=== PATIENT | female | born 1965 | race Caucasian/White ===

== ENCOUNTER 2016-08-29 12:13 | Inpatient (IN) | payer OTHER ==
--- NOTE | 2016-08-29 12:27 | PDOC ---
History of Present Illness - General Chief Complaint: Jaundice Stated Complaint: JAUNDICE Time Seen by Provider: 08/29/16 12:24 History Source: Patient Exam Limitations: No Limitations - History of Present Illness Initial Comments: 08/29/16 12:47 This patient is a 51-year-old female with a prior history of sinusitis, prior history of gallstones diagnosed in 2005 who presents from her primary care physician's office due to jaundice. Patient states she was noticed by her son yesterday to be jaundiced. She currently denies abdominal pain but states that on August 19 she had an episode of nausea, vomiting, diaphoresis after having ice coffee. She has a history of chronic reflux, which has not changed. She has had no fevers, no chills. She's had no recent history of colds or flus. In fact patient states she is usually so healthy that she was ill was in 1995. 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 PSH: Splenectomy Medications: denies ALL: NKDA Social: (+) Tobacco use (10 cig/day) GENERAL/CONSTITUTIONAL: No: fever, chills, weakness, loss of appetite. HEAD, EYES, EARS, NOSE AND THROAT: No: change in vision, ear pain, discharge, sore throat, throat swelling. CARDIOVASCULAR: No: chest pain, lightheadedness, palpitations, syncope RESPIRATORY: No: cough, shortness of breath, wheezing, hemoptysis, stridor. GASTROINTESTINAL: No: nausea, vomiting, diarrhea, abdominal cramping, rectal bleeding, constipation. GENITOURINARY: No: dysuria, hematuria, frequency, urgency, flank pain. MUSCULOSKELETAL: No: back pain, neck pain, joint pain, muscle swelling or pain SKIN: Yes: Jaundiced No: lesions, pallor, rash or easy bruising. NEUROLOGIC: No: headache, vertigo, paresthesias, weakness ENDOCRINE: No: unexplained weight gain or loss HEMATOLOGIC/LYMPHATIC: No: anemia, easy bleeding, swelling nodes. GENERAL: The patient is in no acute distress. HEAD: Normal with no signs of trauma. EYES: PERRLA, EOMI, sclera icteric, conjunctiva clear. ENT: Ears normal, nares patent, oropharynx clear without exudates. Moist mucous membranes. NECK: Normal range of motion, supple without lymphadenopathy, JVD, or masses. LUNGS: Breath sounds equal, clear to auscultation bilaterally. No wheezes, and no crackles. HEART:Regular rate and rhythm, normal S1 and S2 without murmur, rub or gallop. ABDOMEN: Mild RUQ tenderness to deep palpation, otherwise abd Soft, nontender, normoactive bowel sounds. No guarding, no rebound. EXTREMITIES: Normal range of motion, no edema. No clubbing or cyanosis. No erythema, or tenderness. NEUROLOGICAL: Cranial nerves II through XII grossly intact. Normal speech. No focal neurological deficits. MUSCULOSKELETAL: Back non-tender to palpation, no CVA tenderness SKIN: Well healed midline abdominal surgical scar, (+) jaundice Past History - Past Medical History Allergies/Adverse Reactions: Allergies Allergy/AdvReac Type Severity Reaction Status Date / Time No Known Allergies Allergy Verified 08/29/16 12:15 Home Medications: Ambulatory Orders NK [No Known Home Medication] 08/29/16 ED Treatment Course - LABORATORY CBC & Chemistry Diagram: 08/29/16 13:00 08/29/16 13:00 Medical Decision Making - Medical Decision Making 08/29/16 12:24 Received call from pt PMD History of gallstones diagnosed in 2005 1 month ago, got nauseous no pain Yesterday she was noted by the family to be jaundiced She had had diarrhea that is yellow 08/29/16 12:51 DD: Biliary pathology, pancreatic mass/pathology, hemolysis, Will do labs Will do [facility] US 08/29/16 14:25 Laboratory Tests 08/29/16 08/29/16 13:00 13:00 WBC 6.4 Hgb 14.0 Hct 40.0 Plt Count 346 BUN 11 Creatinine 0.5 L Random Glucose 114 H Total Bilirubin 13.4 H AST 392 H ALT 714 H Alkaline Phosphatase 547 H U/S: thick walled gallbladder and multiple calculi Marked dilation of the intra and extrehepatic biliary tree CT recommended Case reviewed with Dr Ruiz Mason 08/29/16 15:[address] Luu Pending CT *DC/Admit/Observation/Transfer Diagnosis at time of Disposition: Jaundice - Discharge Dispostion Condition at time of disposition: Stable Admit: Yes
[2016-08-29 13:25] LABS: MCH 32.2 pg (25.7-33.7); MEAN PLT VOLUME 10.3 fl (7.5-11.1); PLATELET COUNT 346 K/MM3 (134-434); RDW 14.1 % (11.6-15.6); WHITE BLOOD COUNT 6.4 K/mm3 (4.0-10.8)
[2016-08-29 13:42] LABS: ALBUMIN 3.7 g/dl (3.5-5.0); ALK PHOS 547 U/L (32-92); AMYLASE 60 U/L (25-125); ANION GAP 9 (8-16); BILIRUBIN,TOTAL 13.4 mg/dl (0.2-1.0); CALCIUM 9.6 mg/dl (8.4-10.2); CO2 23 mmol/L (22-28); COCKROFT - GAULT 179.3245; CREATININE 0.5 mg/dl (0.6-1.3); GLUCOSE,RANDOM 114 mg/dl (74-106); TOT PROT 7.2 g/dl (6.4-8.3)
[2016-08-29 13:58] LABS: SGOT/AST 392 U/L (10-42)
[2016-08-29 14:07] LABS: SGPT/ALT 714 U/L (10-40)
[2016-08-29] MEDS ORDERED: SODIUM CHLORIDE 1,000 ML IV STA (14:52)
[2016-08-29 15:06] LABS: METAMYELOCYTE 3 % (0-2); PLATELET ESTIMATE ADEQUATE (NORMAL)
[2016-08-29 15:07] LABS: TOXIC GRANULATION OCC
[2016-08-29 18:42] VITALS: BMI 32.5
--- NOTE | 2016-08-29 21:01 | HP ---
CHIEF COMPLAINT: jaundice PCP: Ruiz Mason HISTORY OF PRESENT ILLNESS: This is a 51 year old female with a past medical history of gallstones, last attack in 2005, and thrombocytopenia s/p splenectomy who presented to her PCP for jaundice who then sent her to the ED for evaluation. She denies abdominal pain, nausea, vomiting, diarrhea. She denies recent illness. ER course was notable for: (1) Bilirubin 13.4, AST 329, ALT 714, Alk Phos 547 (2) Thick walled GB with multiple calculi. 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 sinusitis gallstones PAST SURGICAL HISTORY: splenectomy Social History: [place]/day Alcohol: holidays Drugs: pt denies Family History: mother age 76, brain tumor father age 83, infection with pus around lung 2 brothers healthy Allergies No Known Allergies Allergy (Verified 08/29/16 12:15) HOME MEDICATIONS: 3 Medication Instructions Recorded NK [No Known Home Medication] 08/29/16 REVIEW OF SYSTEMS CONSTITUTIONAL: Absent: fever, chills, diaphoresis, generalized weakness, malaise, loss of appetite, weight change HEENT: Absent: rhinorrhea, nasal congestion, throat pain, throat swelling, difficulty swallowing, mouth swelling, ear pain, eye pain, visual changes CARDIOVASCULAR: Absent: chest pain, syncope, palpitations, irregular heart rate, lightheadedness , peripheral edema RESPIRATORY: Absent: cough, shortness of breath, dyspnea with exertion, orthopnea, wheezing, stridor, hemoptysis GASTROINTESTINAL: Absent: abdominal pain, abdominal distension, nausea, vomiting, diarrhea, constipation, melena, hematochezia GENITOURINARY: Absent: dysuria, frequency, urgency, hesitancy, hematuria, flank pain, genital pain MUSCULOSKELETAL: Absent: myalgia, arthralgia, joint swelling, back pain, neck pain SKIN: Present: Jaundice Absent: rash, itching, pallor HEMATOLOGIC/IMMUNOLOGIC: Absent: easy bleeding, easy bruising, lymphadenopathy, frequent infections ENDOCRINE: Absent: unexplained weight gain, unexplained weight loss, heat intolerance, cold intolerance NEUROLOGIC: Absent: headache, focal weakness or paresthesias, dizziness, unsteady gait, seizure, mental status changes, bladder or bowel incontinence PSYCHIATRIC: Absent: anxiety, depression, suicidal or homicidal ideation, hallucinations. PHYSICAL EXAMINATION Vital Signs - 24 hr 3 08/29/16 08/29/16 08/29/16 12:14 18:35 20:22 Temperature 98.7 F 98.6 F Pulse Rate 120 H 85 Respiratory 16 18 18 Rate Blood Pressure 143/95 137/73 O2 Sat by Pulse 100 100 100 Oximetry (%) GENERAL: Awake, alert, and fully oriented, in no acute distress. HEAD: Normal with no signs of trauma. EYES: Pupils equal, round and reactive to light, extraocular movements intact, sclera icteric, conjunctiva clear. No lid lag. EARS, NOSE, THROAT: Ears normal, nares patent, oropharynx clear without exudates. Moist mucous membranes. NECK: Normal range of motion, supple without lymphadenopathy, JVD, or masses. LUNGS: Breath sounds equal, clear to auscultation bilaterally. No wheezes, and no crackles. No accessory muscle use. HEART: Regular rate and rhythm, normal S1 and S2 without murmur, rub or gallop. ABDOMEN: Soft, nontender, not distended, normoactive bowel sounds, no guarding, no rebound, no masses. No hepatomegaly or splenomegaly. MUSCULOSKELETAL: Normal range of motion at all joints. No bony deformities or tenderness. No CVA tenderness. UPPER EXTREMITIES: 2+ pulses, warm, well-perfused. No cyanosis. No clubbing. No peripheral edema. LOWER EXTREMITIES: 2+ pulses, warm, well-perfused. No calf tenderness. No peripheral edema. NEUROLOGICAL: Cranial nerves II-XII intact. Normal speech. Normal gait. PSYCHIATRIC: Cooperative. Good eye contact. Appropriate mood and affect. SKIN: Warm, dry, normal turgor, no rashes or lesions noted, normal capillary refill. + jaundice Laboratory Results - last 24 hr 3 08/29/16 08/29/16 08/29/16 13:00 13:00 16:04 WBC 6.4 RBC 4.35 Hgb 14.0 Hct 40.0 MCV 92.0 MCHC 35.0 RDW 14.1 Plt Count 346 MPV 10.3 Neutrophils % 62.0 Lymphocytes % 17.0 Monocytes % 10.0 Eosinophils % 4.0 Basophils % 1.0 Band Neutrophils 3.0 Metamyelocytes 3 H Toxic Granulation Occ Platelet Estimate Adequate Platelet Comment Mod large plts Sodium 136 Potassium 3.6 Chloride 104 Carbon Dioxide 23 Anion Gap 9 BUN 11 Creatinine 0.5 L Creat Clearance w eGFR > 60 Random Glucose 114 H Calcium 9.6 Total Bilirubin 13.4 H AST 392 H ALT 714 H Alkaline Phosphatase 547 H Total Protein 7.2 Albumin 3.7 Total Amylase 60 Lipase 24 Serum , Qual Negative Portable chest x ray A frontal view of the chest was obtained. No prior is available for comparison. The cardiac silhouette is within normal limits in size. The lung is clear. Mediastinum and visualized osseous structures appear intact . An abdominal shield is present. Impression: Unremarkable examination without evidence of acute lung disease US/ABDOMEN US -LIMITED HISTORY PROVIDED: Jaundice. Real time examination of the abdomen demonstrates the following: The gallbladder is thick-walled and does contain multiple calculi. There is no marked dilatation of both the intra or extrahepatic biliary tree with the common bile duct measuring approximately 1.8 cm. The etiology of this dilatation is uncertain and may be related to choledocholithiasis. The possibility of a mass in the head of the pancreas cannot excluded. A follow-up contrast-enhanced CT scan, utilizing pancreatic protocol, is recommended. An MRCP examination may also be helpful. The liver is normal in size and texture with no intrahepatic masses seen. The pancreas is not well visualized due to overlying bowel gas. There is no evidence of hydronephrosis or acute abnormalities of the right kidney. There is no evidence of AAA. The IVC is patent. IMPRESSION: 1. Thick-walled gallbladder with multiple calculi. 2. Marked dilatation of the intra and extrahepatic biliary tree. Diagnostic possibilities would include choledocholithiasis or pancreatic head mass. A follow-up CT scan and/or MRCP examination now recommended. Please see above discussion. CT scan of the abdomen and pelvis following oral and intravenous contrast. Post intravenous contrast CT scan of the abdomen pelvis was obtained in portal venous and venous phase. Coronal and sagittal reformatted images were obtained 100 cc of Omnipaque 350 was intravenously injected Comparison: Prior upper abdomen ultrasound dated 08/29/2016 Visualized lung base appears unremarkable and the heart is within normal limits in size. The gallbladder is adequately distended with multiple intraluminal stones and thickening of its wall. No gross pericholecystic free fluid is identified. There is moderate to marked dilatation of the central intrahepatic bile ducts. Significant dilatation of the common hepatic duct measuring 1.8 cm. Intrapancreatic portion of the common bile duct measures 9.7 mm in dimension. No gross intraluminal stone is identified on this exam. The pancreatic head appears to be a prominent however, no discrete mass or surrounding stranding/edema is identified. Both adrenal glands and both kidneys appear unremarkable. There is no evidence of small bowel obstruction. No gross enlarged lymph nodes are identified. Normal stool burden in the colon without wall thickening. Normal-appearing terminal ileum and appendix. Adequately distended urinary bladder without wall thickening. Normal size uterus. Both ovaries are within normal limits in size with a cyst/ follicle in the right ovary measuring 1.5 cm. Visualized osseous structures appear intact Impression: Multiple gallstones with thickening of the gallbladder wall without gross evidence of pericholecystic free fluid. There is moderate to marked dilatation of the intrahepatic bile ducts as well as dilatation of the common hepatic and common bile duct without gross evidence of an intraluminal filling defect or stone. Prominent pancreatic head without gross dated herniation of a discrete mass lesion or surrounding infiltration. Correlation with contrast- enhanced MRI of the pancreas and MRCP is strongly recommended for further evaluation. ECG: sinus rhythm, rate 71, QTC 404. T wave inversions lead 3, aVF, flattening lead 2. ASSESSMENT/PLAN: 51yF with PMH gallstones, thrombocytopenia, sinusitis presented to the ED with jaundice. She has been admitted for further evaluation. Jaundice, elevated LFTs, hyperbilirubinemia - r/o choledocholithiasis vs pancreatic mass, obtain MRI/MRCP - repeat labs in am. - consider GI consult DVT PPX - lovenox FEN - pt tolerating po fluids - repeat labs in am - regular diet as tolerated Dispo: Pt currently requires inpatient management of her emergent condition. Visit type - Emergency Visit Emergency Visit: Yes ED Registration Date: 08/29/16 Care time: The patient presented to the Emergency Department on the above date and was hospitalized for further evaluation of their emergent condition. - New Patient This patient is new to me today: Yes Date on this admission: 08/29/16 - Critical Care Critical Care patient: No
--- NOTE | 2016-08-30 07:19 | PN ---
Physical Exam: SUBJECTIVE: Patient seen and examined, denies any abdominal pain, nausea or vomiting, reports patient appears less jaundice OBJECTIVE: patient is a 51 year old female with a past medical history of cholelithasis, and thrombocytopenia s/p splenectomy. patient was admitted from the emergency department for emergent condition. Vital Signs Period Temp Pulse Resp BP Sys/Wilson Pulse Ox Last 24 Hr 98.0 F-98.6 F 70-85 18-18 113-137/67-73 99-100 GENERAL: The patient is awake, alert, and fully oriented, in no acute distress. HEAD: Normal with no signs of trauma. EYES: PERRL, extraocular movements intact, sclera icteric, conjunctiva clear. No ptosis. ENT: Ears normal, nares patent, oropharynx clear without exudates, moist mucous membranes. NECK: Trachea midline, full range of motion, supple. LUNGS: Breath sounds equal, clear to auscultation bilaterally, no wheezes, no crackles, no accessory muscle use. HEART: Regular rate and rhythm, S1, S2 without murmur, rub or gallop. ABDOMEN: Soft, nontender, nondistended, normoactive bowel sounds, no guarding, no rebound, no hepatosplenomegaly, no masses. EXTREMITIES: 2+ pulses, warm, well-perfused, no edema. NEUROLOGICAL: Cranial nerves II through XII grossly intact. Normal speech, gait not observed. PSYCH: Normal mood, normal affect. SKIN: Warm, jaundice, normal turgor, no rashes or lesions noted Active Medications Generic Name Dose Route Start Last Admin Trade Name Freq PRN Reason Stop Dose Admin Enoxaparin Sodium 40 mg 08/30/16 10:00 08/30/16 09:22 Lovenox - SQ 40 mg DAILY LILLY Administration Dextrose/Sodium Chloride 1,000 mls @ 75 mls/hr 08/30/16 13:15 D5-Ns - IV ASDIR LILLY CBC WBC 6.4 K/mm3 (4.0-10.8) 08/29/16 13:00 RBC 4.35 M/mm3 (3.60-5.2) 08/29/16 13:00 Hgb 14.0 GM/dl (10.7-15.3) 08/29/16 13:00 Hct 40.0 % (32.4-45.2) 08/29/16 13:00 MCV 92.0 fl (80-96) 08/29/16 13:00 MCHC 35.0 g/dl (32.0-36.0) 08/29/16 13:00 RDW 14.1 % (11.6-15.6) 08/29/16 13:00 Plt Count 346 K/MM3 (134-434) 08/29/16 13:00 MPV 10.3 fl (7.5-11.1) 08/29/16 13:00 Neutrophils % 62.0 % (42.8-82.8) 08/29/16 13:00 Lymphocytes % 17.0 % (8-40) 08/29/16 13:00 Monocytes % 10.0 % (3.8-10.2) 08/29/16 13:00 Eosinophils % 4.0 % (0-4.5) 08/29/16 13:00 Basophils % 1.0 % (0-2.0) 08/29/16 13:00 Band Neutrophils 3.0 % (0-10) 08/29/16 13:00 Metamyelocytes 3 % (0-2) H 08/29/16 13:00 Toxic Granulation Occ 08/29/16 13:00 Platelet Estimate Adequate (NORMAL) 08/29/16 13:00 Platelet Comment Mod large plts 08/29/16 13:00 CMP Sodium 141 mmol/L (136-145) 08/30/16 07:35 Potassium 4.1 mmol/L (3.5-5.1) 08/30/16 07:35 Chloride 106 mmol/L (98-107) 08/30/16 07:35 Carbon Dioxide 24 mmol/L (22-28) 08/30/16 07:35 Anion Gap 11 (8-16) 08/30/16 07:35 BUN 10 mg/dl (7-18) 08/30/16 07:35 Creatinine 0.6 mg/dl (0.6-1.3) 08/30/16 07:35 Creat Clearance w eGFR > 60 (>60) 08/29/16 13:00 Random Glucose 86 mg/dl (74-106) D 08/30/16 07:35 Calcium 9.6 mg/dl (8.4-10.2) 08/30/16 07:35 Total Bilirubin 13.4 mg/dl (0.2-1.0) H 08/29/16 13:00 AST 392 U/L (10-42) H 08/29/16 13:00 ALT 714 U/L (10-40) H 08/29/16 13:00 Alkaline Phosphatase 547 U/L (32-92) H 08/29/16 13:00 Total Protein 7.2 g/dl (6.4-8.3) 08/29/16 13:00 Albumin 3.7 g/dl (3.5-5.0) 08/29/16 13:00 Total Amylase 60 U/L (25-125) 08/29/16 13:00 Lipase 25 U/L (22-51) 08/30/16 Unknown Serum , Qual Negative 08/29/16 16:04 IMAGING chest x ray: Unremarkable examination without evidence of acute lung disease US/ABDOMEN US -LIMITED HISTORY PROVIDED: 1. Thick-walled gallbladder with multiple calculi. 2. Marked dilatation of the intra and extrahepatic biliary tree. CT scan of the abdomen and pelvis following oral and intravenous contrast: Multiple gallstones with thickening of the gallbladder wall without gross evidence of pericholecystic free fluid. There is moderate to marked dilatation of the intrahepatic bile ducts as well as dilatation of the common hepatic and common bile duct without gross evidence of an intraluminal filling defect or stone. Prominent pancreatic head without gross dated herniation of a discrete mass lesion or surrounding infiltration. ECG: sinus rhythm, rate 71, QTC 404. T wave inversions lead 3, aVF, flattening lead 2. ASSESSMENT/PLAN: 1) GI - ct scan of abd/pelvis and ultrasound reviewed, high clinical concern for choledocholithasis, pt is awaiting MRCP today at 1330 - transanimitis noted, jaundice on exam, awaiting LFT's and CBC from AM labs, contacted medical lab tech instructor at 1300, blood work was transferred to creads b/c cbc machine is being serviced - appreciate surgery input (Dani) - pt may require GI consult depending upon mrcp results - npo until MRCP results are obtained-->IVF DVT PPX - lovenox FEN -npo-->IVF Dispo: Pt currently requires inpatient management of her emergent condition. Visit type - Emergency Visit Emergency Visit: Yes ED Registration Date: 08/29/16 Care time: The patient presented to the Emergency Department on the above date and was hospitalized for further evaluation of their emergent condition. - New Patient This patient is new to me today: Yes Date on this admission: 08/30/16 - Critical Care Critical Care patient: No - Discharge Referral Referred to [facility] Yes Physician Referral: Sara Barber MD ([facility])
[2016-08-30] MEDS ORDERED: ENOXAPARIN NA (PORCINE) 40 MG/0.4 ML DISP.SYRIN SQ SCH (10:00)
[2016-08-30 11:09] LABS: INR 1.05 (0.82-1.09); PROTHROMBIN TIME (PATIENT) 11.7 SEC (10.2-13.0)
[2016-08-30 11:41] LABS: CREATININE 0.6 mg/dl (0.6-1.3); GLUCOSE,RANDOM 86 mg/dl (74-106)
[2016-08-30 11:42] LABS: ANION GAP 11 (8-16); CALCIUM 9.6 mg/dl (8.4-10.2); CO2 24 mmol/L (22-28)
--- NOTE | 2016-08-30 11:51 | EKG ---
Test Reason : Blood Pressure : / mmHG Vent. Rate : 071 BPM Atrial Rate : 071 BPM P-R Int : 150 ms QRS Dur : 082 ms QT Int : 372 ms P-R-T Axes : 050 038 -08 degrees QTc Int : 404 ms NORMAL SINUS RHYTHM T WAVE ABNORMALITY, CONSIDER INFERIOR ISCHEMIA ABNORMAL ECG NO PREVIOUS ECGS AVAILABLE CLINICAL CORRELATION IS RECOMMENDED Confirmed by RYANN FARIA, MAGGIE ([id number]) on 08/30/2016 11:51:46 AM Referred By: TONY Confirmed By:MAGGIE GARZON MD
[2016-08-30] MEDS ORDERED: DEXTROSE 5%-NORMAL SALINE 1,000 ML IV SCH (13:15)
[2016-08-30 14:14] LABS: ALBUMIN 3.5 g/dl (3.5-5.0); BILIRUBIN,DIRECT 3.1 mg/dL (0.0-0.2); BILIRUBIN,TOTAL 7.2 mg/dl (0.2-1.0); TOT PROT 6.5 g/dl (6.4-8.3)
[2016-08-30 14:56] LABS: WHITE BLOOD COUNT 7.8 K/mm3 (4.0-10.0)
[2016-08-30 14:59] LABS: BASOPHIL 1.2 % (0-2.0); MCH 31.5 pg (25.7-33.7); MCHC 33.1 g/dl (32.0-36.0); MEAN CELL VOLUME 95.2 fl (80-96); MEAN PLT VOLUME 10.6 fl (7.5-11.1); NEUTROPHILS 68.8 % (42.8-82.8); PLATELET COUNT 293 K/MM3 (134-434); RDW 14.3 % (11.6-15.6)
--- NOTE | 2016-08-30 17:09 | PN ---
Progress Note (short form) - Note Progress Note: surgery unable to evaluate patient earlier as they were at the [facility] getting mrcp. 51f with gallstones, jaundice, and 13mm cbd. MRI shows possible stricture without choledocholithiasis. recommend gi eval for ercp. would not consider cholecystectomy unless stricture /malignancy ruled out. May need surgical eval at tertiary care center pending ercp findings.
[2016-08-30] MEDS ORDERED: PIPERACILLIN/TAZOB 3.375 GM/50 ML PRE-DOCKED IVPB SCH (18:00)
[2016-08-30 20:24] LABS: ALBUMIN 3.5 g/dl (3.5-5.0); ALK PHOS 468 U/L (32-92); ANION GAP 11 (8-16); BILIRUBIN,DIRECT 2.9 mg/dl (0.0-0.2); BILIRUBIN,TOTAL 6.9 mg/dl (0.2-1.0); CO2 22 mmol/L (22-28); CREATININE 0.6 mg/dl (0.6-1.3); GLUCOSE,RANDOM 84 mg/dl (74-106); MAGNESIUM 1.8 mg/dL (1.8-2.4); PHOSPHOROUS 3.1 mg/dl (2.5-4.6); SGOT/AST 176 U/L (10-42); TOT PROT 6.7 g/dl (6.4-8.3)
[2016-08-30 20:25] LABS: COCKROFT - GAULT NT
[2016-08-30 20:45] LABS: MEAN PLT VOLUME 10.8 fl (7.5-11.1); RDW 14.2 % (11.6-15.6)
[2016-08-30 20:47] LABS: MCH 30.8 pg (25.7-33.7); MCHC 33.1 g/dl (32.0-36.0); PLATELET COUNT 313 K/MM3 (134-434); WHITE BLOOD COUNT 8.5 K/mm3 (4.0-10.0)
[2016-08-30 22:01] LABS: SGPT/ALT 518 U/L (10-40)
[2016-08-30 23:27] LABS: METAMYELOCYTE 2 % (0-2)
[2016-08-30 23:28] LABS: HOWELL-JOLLY BODIES SEEN; PLATELET COMMENT2 FEW LARGE PLTS; PLATELET ESTIMATE ADEQUATE (NORMAL)
[2016-08-31] MEDS: PIPERACILLIN/TAZOB 4.5 GM/100 ML PRE-DOCKED IVPB SCH ×3 (01:40→17:04)
[2016-08-31 08:30] LABS: INR 1.08 (0.82-1.09); PROTHROMBIN TIME (PATIENT) 11.9 SEC (9.98-11.88)
[2016-08-31 08:44] LABS: ANION GAP 8 (8-16); BILIRUBIN,TOTAL 5.1 mg/dL (0.2-1.0); CALCIUM 8.9 mg/dL (8.5-10.1); CO2 27 mmol/L (21-32); CREATININE 0.7 mg/dL (0.55-1.02); GLUCOSE,RANDOM 91 mg/dL (74-106); MAGNESIUM 2.1 mg/dL (1.8-2.4); PHOSPHOROUS 3.7 mg/dL (2.5-4.9); SGOT/AST 147 U/L (15-37); TOT PROT 6.3 g/dl (6.4-8.2)
[2016-08-31 08:45] LABS: SGPT/ALT 477 U/L (12-78)
[2016-08-31 08:46] LABS: ALK PHOS 468 U/L (45-117)
[2016-08-31] MEDS ORDERED: LACTATED RINGERS SOLUTION 1,000 ML IV SCH ×4 (09:15→18:15)
[2016-08-31] MEDS ORDERED: INDOMETHACIN 50 MG RECTAL SUPPOSITORY PR ONE (09:30)
[2016-08-31] MEDS ORDERED: PROPOFOL 20 ML ONE ×2 (09:58)
[2016-08-31] MEDS ORDERED: SUCCINYLCHOLINE CHLORIDE 200 MG/10 ML VIAL ONE (09:58)
[2016-08-31] MEDS ORDERED: SEVOFLURANE 250 ML BTL ONE (10:03)
[2016-08-31] MEDS ORDERED: ONDANSETRON 4 MG/2 ML VIAL ONE ×2 (10:03→12:03)
[2016-08-31 10:42] LABS: URINE APPEARANCE CLEAR; URINE BILIRUBIN NEGATIVE (NEGATIVE); URINE BLOOD NEGATIVE (NEGATIVE); URINE COLOR AMBER; URINE GLUCOSE (UA) NEGATIVE (NEGATIVE); URINE KETONE NEGATIVE (NEGATIVE); URINE LEUK ESTERASE NEGATIVE (NEGATIVE); URINE NITRITE NEGATIVE (NEGATIVE); URINE PROTEIN NEGATIVE (NEGATIVE); URINE UROBILINOGEN 2.0 E.U/dl E.U./dl (0.2-1.0)
[2016-08-31 10:56] LABS: MCH 32.2 pg (25.7-33.7); MCHC 34.3 g/dl (32.0-36.0); MEAN CELL VOLUME 94.1 fl (80-96); MEAN PLT VOLUME 9.8 fl (7.5-11.1); PLATELET COUNT 299 K/MM3 (134-434); RDW 14.3 % (11.6-15.6)
[2016-08-31 10:58] LABS: PLATELET ESTIMATE ADEQUATE (NORMAL); TARGET CELLS 4+
--- NOTE | 2016-08-31 12:01 | CON.GI ---
Consult Consult Specialty:: Gastroenterology Referred by:: Dr Priyanka Verdugo Reason for Consultation:: Jaundice and stones in CBD - History of Present Illness Chief Complaint: Jaundice, light colored stool, tea colored urine, vomiting and nausea. History of Present Illness: 51W was discovered by her son to have jaundice, light colored stool, tea colored urine, vomiting and nausea. She however denies any severe abdominal pains. She has been known to have gallstones since 2005. No liver disease. She is s/p splenectomy for ITP and a C section. She has acid reflux. This history and physicial were performed prior to the ERCP procedure but are being recorded after it's completion. Informed consent was obtained from the patient after also discussing the situation with her . She was informed of the potential complications that include perforation, hemorrhage and pain, vomiting and multiorgan failure that can arise from ERCP induced pancreatitis. The potential need for transfusions and emergent surgery was discussed and all of the patient's questions were answered before undertaking the procedure. She was given an Indocin suppository and Ringer's lactate prior to the procedure. - History Source History Provided By: Patient Limitations to Obtaining History: No Limitations - Past Medical History Gastrointestinal: Yes: GERD Hepatobiliary: Yes: Cholelithiasis, Choledocholithiasis Heme/Onc: Yes: Anemia (? 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 Place of : [facility] History of Recent Travel: No Home Medications - Allergies Allergies/Adverse Reactions: Allergies Allergy/AdvReac Type Severity Reaction Status Date / Time No Known Allergies Allergy Verified 08/29/16 12:15 - Home Medications Home Medications: Ambulatory Orders NK [No Known Home Medication] 08/29/16 Family Disease History - Family Disease History Family Disease History: CA: Mother (82 glioblastoma of brain), Respiratory: Father (Pulmonary abscess 78) Review of Systems - Review of Systems Constitutional: reports: No Symptoms Eyes: reports: No Symptoms HENT: reports: No Symptoms Neck: reports: No Symptoms Cardiovascular: reports: No Symptoms Respiratory: reports: No Symptoms Gastrointestinal: reports: Nausea, Vomiting, Other (acid reflux) Genitourinary: reports: No Symptoms Musculoskeletal: reports: No Symptoms Physical Exam-GI Vital Signs: Vital Signs Temperature 98.4 F 08/31/16 04:00 Pulse Rate 57 L 08/31/16 04:00 Respiratory Rate 18 08/31/16 07:17 Blood Pressure 128/71 08/31/16 04:00 O2 Sat by Pulse Oximetry (%) 99 08/31/16 07:17 CBC,CMP WBC 7.0 K/mm3 (4.0-10.0) 08/31/16 07:00 RBC 3.68 M/mm3 (3.60-5.2) 08/31/16 07:00 Hgb 11.9 GM/dL (10.7-15.3) 08/31/16 07:00 Hct 34.6 % (32.4-45.2) 08/31/16 07:00 MCV 94.1 fl (80-96) 08/31/16 07:00 MCHC 34.3 g/dl (32.0-36.0) 08/31/16 07:00 RDW 14.3 % (11.6-15.6) 08/31/16 07:00 Plt Count 299 K/MM3 (134-434) 08/31/16 07:00 MPV 9.8 fl (7.5-11.1) 08/31/16 07:00 Neutrophils % 63.0 % (42.8-82.8) D 08/31/16 07:00 Lymphocytes % 16.0 % (8-40) D 08/31/16 07:00 Monocytes % 13.0 % (3.8-10.2) H 08/31/16 07:00 Eosinophils % 5.0 % (0-4.5) H 08/31/16 07:00 Basophils % 2.0 % (0-2.0) 08/30/16 18:47 Band Neutrophils 1.0 % (0-10) D 08/31/16 07:00 Metamyelocytes 2 % (0-2) 08/30/16 18:47 Differential Comment Manual diff done 08/31/16 07:00 Reactive Lymphocytes 2 % (0-80) 08/31/16 07:00 Toxic Granulation Occ 08/29/16 13:00 Platelet Estimate Adequate (NORMAL) 08/31/16 07:00 Platelet Comment Few giant plts 08/30/16 18:47 Platelet Comment Few large plts 08/30/16 18:47 Target Cells 4+ 08/31/16 07:00 Gar-[facility] [place] Bodies Seen 08/30/16 18:47 Sodium 141 mmol/L (136-145) 08/31/16 07:00 Potassium 4.0 mmol/L (3.5-5.1) 08/31/16 07:00 Chloride 106 mmol/L (98-107) 08/31/16 07:00 Carbon Dioxide 27 mmol/L (21-32) 08/31/16 07:00 Anion Gap 8 (8-16) 08/31/16 07:00 BUN 11 mg/dL (7-18) 08/31/16 07:00 Creatinine 0.7 mg/dL (0.55-1.02) 08/31/16 07:00 Creat Clearance w eGFR > 60 (>60) 08/31/16 07:00 Random Glucose 91 mg/dL (74-106) 08/31/16 07:00 Calcium 8.9 mg/dL (8.5-10.1) 08/31/16 07:00 Phosphorus 3.7 mg/dL (2.5-4.9) 08/31/16 07:00 Magnesium 2.1 mg/dL (1.8-2.4) 08/31/16 07:00 Total Bilirubin 5.1 mg/dL (0.2-1.0) H 08/31/16 07:00 Direct Bilirubin 2.9 mg/dl (0.0-0.2) H 08/30/16 18:47 AST 147 U/L (15-37) H 08/31/16 07:00 ALT 477 U/L (12-78) H 08/31/16 07:00 Alkaline Phosphatase 468 U/L (45-117) H 08/31/16 07:00 Total Protein 6.3 g/dl (6.4-8.2) L 08/31/16 07:00 Albumin 3.0 g/dl (3.4-5.0) L 08/31/16 07:00 Total Amylase 60 U/L (25-125) 08/29/16 13:00 Lipase 25 U/L (22-51) 08/30/16 Unknown Serum , Qual Negative 08/29/16 16:04 Current Medications Generic Name Dose Route Start Last Admin Trade Name Freq PRN Reason Stop Dose Admin Lactated Ringer's 1,000 mls @ 125 mls/hr 08/31/16 09:15 Lactated Ringers Solution IV ASDIR LILLY Lactated Ringer's 1,000 mls @ 125 mls/hr 08/31/16 12:15 Lactated Ringers Solution IV ASDIR LILLY Piperacillin Sod/Tazobactam Sod 4.5 gm 08/31/16 02:00 08/31/16 09:29 Zosyn 4.5gm Ivpb (Pre-Docked) IVPB 4.5 gm Q8H-IV LILLY Administration Protocol Promethazine HCl 12.5 mg 08/31/16 12:05 Phenergan Injection - IVPUSH 08/31/16 18:06 Q6H PRN NAUSEA Constitutional: Yes: Anxious Eyes: Yes: Sclera Icterus HENT: Yes: Normocephalic Neck: Yes: Supple Cardiovascular: Yes: Regular Rate and Rhythm Respiratory: Yes: CTA Bilaterally Gastrointestinal Inspection: Yes: Scars (healed Pfannensteil and vertical upper midline incisions) ...Auscultate: Yes: Normoactive Bowel Sounds ...Palpate: Yes: Soft, Other (nontender) ...Percussion: Yes: Tympanitic ...Rectal Exam: Yes: Deferred Edema: No Labs: CBC, BMP 08/31/16 07:00 08/31/16 07:00 INR, PTT INR 1.08 (0.82-1.09) 08/31/16 07:00 Imaging - Results MRI: Image Reviewed (multiple CBD stones and dilation) Problem List - Problems (1) Choledocholithiasis Code(s): K80.50 - CALCULUS OF BILE DUCT W/O CHOLANGITIS OR CHOLECYST W/O OBST (2) Cholelithiasis Code(s): K80.20 - CALCULUS OF GALLBLADDER W/O CHOLECYSTITIS W/O OBSTRUCTION (3) Vomiting Code(s): R11.10 - VOMITING, UNSPECIFIED (4) Post-splenectomy Code(s): Z90.81 - ACQUIRED ABSENCE OF SPLEEN (5) History of ITP Code(s): Z86.2 - PRSNL HISTORY OF DIS OF THE BLD/BLD-FORM ORG/IMMUN MECHNSM Assessment/Plan Obstructive jaundice due to choledocholithiasis raises risks for ascending cholangitis and sepsis as well as for biliary pancreatitis. As a result the ERCP was undertaken as soon as consent was procured and Indocin administered. The stones could not be extracted with the balloon and had to be fragmented with the basket lithotriptor. The multiple manipulations led to swelling and closure of the sphincterotomy so a protective biliary stent was placed. The patient was informed prior to the procedure of the potential need for a 2nd ERCP for stent removal and for the need for an interim cholecystectomy. Will give brisk Ringers Lactate hydration to try to prevent pancreatitis. Need to continue antibiotics. Will inform surgeon and speak to .
[2016-08-31] MEDS ORDERED: PROMETHAZINE HCL 25 MG/1 ML VIAL IVPUSH PRN (12:05)
--- NOTE | 2016-08-31 13:14 | PN ---
Progress Note (short form) - Note Progress Note: ID consult dictated imp/reccd choledocholithiasis concern for biliary sepsis s/p splenectomy 1997 for ITP s/p ERCP continue zosyn f/u with PMD to make sure she is UTD with vaccines -followed by Dr Orozco Problem List - Problems (1) Choledocholithiasis Code(s): K80.50 - CALCULUS OF BILE DUCT W/O CHOLANGITIS OR CHOLECYST W/O OBST (2) Post-splenectomy Code(s): Z90.81 - ACQUIRED ABSENCE OF SPLEEN
--- NOTE | 2016-08-31 13:41 | PN ---
Progress Note (short form) - Note Progress Note: surgery pt seen and examined. full consult dictated. 51f, known cholelithiasis, presents with painless jaundice. MRCP shows choledocholithiais, dilated cbd, poss stricture vs malignancy. ERCP done with finding of multiple cbd stones and stent placed. no suspicion of stricture or malignancy noted. Plan- will follow pancreatic enzymes and lfts. likely cholecystectomy this admission.
--- NOTE | 2016-08-31 15:25 | PN ---
Physical Exam: SUBJECTIVE: Patient seen and examined at bedside. Denies abdominal pain. Throat a little sore after procedure. Tolerating sips of water. OBJECTIVE: Vital Signs Period Temp Pulse Resp BP Sys/Wilson Pulse Ox Last 24 Hr 97.3 F-98.6 F 52-78 12-20 115-160/61-75 97-99 GENERAL: The patient is awake, alert, and fully oriented, in no acute distress. HEAD: Normal with no signs of trauma. EYES: PERRL, extraocular movements intact, +sclera icteric ENT: throat clear LUNGS: Breath sounds equal, clear to auscultation bilaterally, no wheezes, no crackles, no accessory muscle use. HEART: Regular rate and rhythm, S1, S2 without murmur, rub or gallop. ABDOMEN: Soft, nontender, nondistended, normoactive bowel sounds, no guarding, no rebound EXTREMITIES: 2+ pulses, warm, well-perfused, no edema. NEUROLOGICAL: Cranial nerves II through XII grossly intact. Normal speech, gait not observed. Laboratory Results - last 24 hr 08/30/16 08/30/16 08/30/16 07:35 18:47 18:47 WBC 8.5 RBC 3.94 Hgb 12.1 Hct 36.7 MCV 93.0 MCHC 33.1 RDW 14.2 Plt Count 313 MPV 10.8 Neutrophils % 51.0 D Lymphocytes % 25.0 D Monocytes % 12.0 H Eosinophils % 6.0 H Basophils % 2.0 Band Neutrophils 2.0 Metamyelocytes 2 Differential Comment Reactive Lymphocytes Platelet Estimate Adequate Platelet Comment Few large plts Target Cells Gar-[place] Bodies Seen INR PTT (Actin FS) Sodium 133 L Potassium 3.5 Chloride 100 Carbon Dioxide 22 Anion Gap 11 BUN 9 Creatinine 0.6 Creat Clearance w eGFR Random Glucose 84 Calcium 9.0 Phosphorus 3.1 Magnesium 1.8 Total Bilirubin 6.9 H Direct Bilirubin 2.9 H AST 176 H ALT 538 H D 518 H Alkaline Phosphatase 468 H Total Protein 6.7 Albumin 3.5 Lipase Urine Color Urine Appearance Urine pH Urine Protein Urine Glucose (UA) Urine Ketones Urine Blood Urine Nitrite Urine Bilirubin Urine Urobilinogen Ur Leukocyte Esterase 08/30/16 08/30/16 08/31/16 18:47 18:47 07:00 WBC 7.0 RBC 3.68 Hgb 11.9 Hct 34.6 MCV 94.1 MCHC 34.3 RDW 14.3 Plt Count 299 MPV 9.8 Neutrophils % 63.0 D Lymphocytes % 16.0 D Monocytes % 13.0 H Eosinophils % 5.0 H Basophils % Band Neutrophils 1.0 D Metamyelocytes Differential Comment Manual diff done Reactive Lymphocytes 2 Platelet Estimate Adequate Platelet Comment Target Cells 4+ Gar-[place] Bodies INR PTT (Actin FS) 67.8 H Sodium Potassium Chloride Carbon Dioxide Anion Gap BUN Creatinine Creat Clearance w eGFR Random Glucose Calcium Phosphorus Magnesium Total Bilirubin Direct Bilirubin AST ALT Alkaline Phosphatase Total Protein Albumin Lipase 23 Urine Color Urine Appearance Urine pH Urine Protein Urine Glucose (UA) Urine Ketones Urine Blood Urine Nitrite Urine Bilirubin Urine Urobilinogen Ur Leukocyte Esterase 08/31/16 08/31/16 08/31/16 07:00 07:00 07:40 WBC RBC Hgb Hct MCV MCHC RDW Plt Count MPV Neutrophils % Lymphocytes % Monocytes % Eosinophils % Basophils % Band Neutrophils Metamyelocytes Differential Comment Reactive Lymphocytes Platelet Estimate Platelet Comment Target Cells Gar-[place] Bodies INR 1.08 PTT (Actin FS) Sodium 141 Potassium 4.0 Chloride 106 Carbon Dioxide 27 Anion Gap 8 BUN 11 Creatinine 0.7 Creat Clearance w eGFR > 60 Random Glucose 91 Calcium 8.9 Phosphorus 3.7 Magnesium 2.1 Total Bilirubin 5.1 H Direct Bilirubin AST 147 H ALT 477 H Alkaline Phosphatase 468 H Total Protein 6.3 L Albumin 3.0 L Lipase Urine Color [place] Urine Appearance Clear Urine pH 5.0 Urine Protein Negative Urine Glucose (UA) Negative Urine Ketones Negative Urine Blood Negative Urine Nitrite Negative Urine Bilirubin Negative Urine Urobilinogen 2.0 e.u/dl H Ur Leukocyte Esterase Negative 08/31/16 12:59 WBC RBC Hgb Hct MCV MCHC RDW Plt Count MPV Neutrophils % Lymphocytes % Monocytes % Eosinophils % Basophils % Band Neutrophils Metamyelocytes Differential Comment Reactive Lymphocytes Platelet Estimate Platelet Comment Target Cells Gar-[place] Bodies INR PTT (Actin FS) 62.9 H Sodium Potassium Chloride Carbon Dioxide Anion Gap BUN Creatinine Creat Clearance w eGFR Random Glucose Calcium Phosphorus Magnesium Total Bilirubin Direct Bilirubin AST ALT Alkaline Phosphatase Total Protein Albumin Lipase Urine Color Urine Appearance Urine pH Urine Protein Urine Glucose (UA) Urine Ketones Urine Blood Urine Nitrite Urine Bilirubin Urine Urobilinogen Ur Leukocyte Esterase Active Medications Generic Name Dose Route Start Last Admin Trade Name Freq PRN Reason Stop Dose Admin Lactated Ringer's 1,000 mls @ 200 mls/hr 08/31/16 12:15 08/31/16 13:20 Lactated Ringers Solution IV 08/31/16 18:15 200 mls/hr ASDIR LILLY Administration Lactated Ringer's 1,000 mls @ 150 mls/hr 08/31/16 18:15 Lactated Ringers Solution IV 09/01/16 00:15 ASDIR LILLY Lactated Ringer's 1,000 mls @ 125 mls/hr 09/01/16 00:15 Lactated Ringers Solution IV 09/04/16 00:14 ASDIR LILLY Piperacillin Sod/Tazobactam Sod 4.5 gm 08/31/16 02:00 08/31/16 09:29 Zosyn 4.5gm Ivpb (Pre-Docked) IVPB 4.5 gm Q8H-IV LILLY Administration Protocol Promethazine HCl 12.5 mg 08/31/16 12:05 Phenergan Injection - IVPUSH 08/31/16 18:06 Q6H PRN NAUSEA Imaging 08/29 MRCP: (1) distal CBD narrowing/obstruction with wall thickening and progressive contrast enhancement; (2) extensive proximal CBD, cystic duct, CHD, and intrahepatic biliary ductal dilatation with numerous small stones in the distal CBD; (3) contracted gallbladder filled with gallstones, chronic cholecystitis; (4) s/p splenectomy ASSESSMENT/PLAN: 51 year-old woman with a significant PMH of gallstones, and ITP s/p splenectomy (1997), who presented with jaundice, tea-colored urine, nausea and vomiting. Admitted for choledocholilithiasis. Obstructive jaundice secondary to choledocholilithiasis S/P sphincerotomy, balloon sweeping, removal of calculi, lithotripsy, biliary stent placement 08/31 Cholelithiasis Cholecystitis --may require 2nd ERCP for stent removal and possible interim cholecystectomy --at risk for ascending cholangitis, sepsis, biliary pancreatitis --continue empiric Zosyn (day #1) --brisk LR IV fluids --GI and surgery following ITP s/p splenectomy --f/u with PMD to make sure up to date with vaccines -followed by Dr Orozco F/E/N Fluids: IV LR @ 200mL/hr titrated over 24 hours Electrolytes: replete as indicated Nutrition: clears Physical therapy evaluation Daily PT DVT prophylaxis: start lovenox tomorrow if no bleeding issues; SCDs; oob, ambulation Visit type - Emergency Visit Emergency Visit: Yes ED Registration Date: 08/29/16 Care time: The patient presented to the Emergency Department on the above date and was hospitalized for further evaluation of their emergent condition. - New Patient This patient is new to me today: Yes Date on this admission: 08/31/16 - Critical Care Critical Care patient: No
--- NOTE | 2016-08-31 20:50 | CONS ---
DATE OF CONSULTATION: 08/31/2016 REASON FOR CONSULTATION: Jaundice, choledocholithiasis, cholelithiasis. This is a consultation requested by Yoli Donaldson NP BRIEF HISTORY: This is a 51-year-old female who had known history of cholelithiasis and had chosen not to have her gallbladder managed surgically. Presented with painless jaundice to [facility]. There, she had an ultrasound done, which was consistent with a dilated common bile duct and gallstones. She then had a CAT scan of her abdomen and pelvis, which confirmed gallstones and again showed dilatation of the common bile duct. She then underwent an MRCP, which showed a very dilated common bile duct with multiple stones within the common bile duct and the possibility of stricture versus malignancy was entertained. She was noted to have an initial bilirubin of 13, which trended down to 5 today. She underwent an ERCP this morning, which confirmed multiple stones in the bile duct. They were not all able to be removed and a stent was placed. There was no suspicion of malignancy or stricture noted by Dr. He. The patient is currently pain free. Her past medical history is significant for sinusitis, gallstones, gastroesophageal reflux disease, and previous ITP. Her past surgical history includes a splenectomy done through an upper midline incision, as well as a section. She takes no medications. She has no known drug allergies. Her social history is positive for tobacco and negative for alcohol. She has been encouraged to quit. Her family history is noncontributory. REVIEW OF SYSTEMS: General: Denies fatigue or malaise. Cardiac: No chest pain or palpitations. Respiratory: No shortness of breath or wheeze. Gastrointestinal: No nausea, no vomiting, no diarrhea, no abdominal pain, no recent weight loss. Genitourinary: Denies dysuria. Musculoskeletal: Denies joint pain, joint swelling. Psychiatric: Denies anxiety, depression, or hearing voices. PHYSICAL EXAMINATION: General: This is an obese 51-year-old female in no distress. Vital Signs: She is afebrile. HEENT: Her head is normocephalic. Her sclerae are anicteric. Skin: Her skin is yellow. Neck: Supple. Chest: Clear. Abdomen: Soft, nontender. There is a large midline scar. There is not obvious hernia. Extremities: Her extremities have no edema. On review of her laboratory, her total bilirubin is 7.2, her direct bilirubin is 3.1, her AST is 197, her ALT is 538, and her alkaline phosphatase is 463. Her white blood cell count is normal at 7.0 without a shift. Her imaging is as stated in HPI. Her urinalysis is unremarkable, with the exception of elevated urobilinogen. ASSESSMENT: This is a 51-year-old female with painless jaundice, dilated common bile duct, gallstones, and choledocholithiasis, with abnormal ultrasound, CAT scan, and MRCP. ERCP was done, showing gallstones, and there is no suspicion for a stricture or malignancy. A stent has been placed. At this point, will observe the patient. Her liver function tests should rapidly improve, and she hopefully will not develop pancreatitis. If not, will likely proceed with cholecystectomy to prevent future recurrence this admission. The risks and benefits of surgery have been explained to patient in detail. These are including but not limited to the possibility of conversion to open, the possibility of common bile duct injury, possibility of cystic duct stump leak, the possibility of injury to viscera, the possibility of blood loss requiring blood transfusion, possibility of future obstruction, possibility of future hernia, plus a multitude of medical risks including but not limited to cardiac, neurologic, pulmonary, and vascular complications, even . The patient understands these risks and is agreeable to surgery. She also understands that in the setting of multiple gallstones, she has the potential to develop primary stones and could ultimately require further surgical procedures done by hepatobiliary surgery including a hepaticojejunostomy. Patient wishes to proceed with a simple cholecystectomy first and hope that this will be sufficient to prevent her from having future recurrence. DO TANVI TROY/[id number]
[2016-08-31] MEDS ORDERED: ACETAMINOPHEN 325 MG TABLET (FP) PO ONE (23:10)
[2016-09-01] MEDS: LACTATED RINGERS SOLUTION 1,000 ML IV SCH ×3 (00:42→18:12)
[2016-09-01] MEDS: PIPERACILLIN/TAZOB 4.5 GM/100 ML PRE-DOCKED IVPB SCH ×3 (02:13→18:09)
[2016-09-01 07:21] LABS: BASOPHIL 1.3 % (0-2.0); INR 1.04 (0.82-1.09); MCH 31.8 pg (25.7-33.7); MCHC 33.8 g/dl (32.0-36.0); MEAN CELL VOLUME 94.1 fl (80-96); NEUTROPHILS 60.9 % (42.8-82.8); PLATELET COUNT 307 K/MM3 (134-434); PROTHROMBIN TIME (PATIENT) 11.4 SEC (9.98-11.88); RDW 14.2 % (11.6-15.6); WHITE BLOOD COUNT 7.9 K/mm3 (4.0-10.0)
[2016-09-01 07:40] LABS: ALBUMIN 3.2 g/dl (3.4-5.0)
[2016-09-01 07:43] LABS: CREATININE 0.7 mg/dL (0.55-1.02); MAGNESIUM 1.9 mg/dL (1.8-2.4); SGOT/AST 84 U/L (15-37); SGPT/ALT 378 U/L (12-78)
[2016-09-01 07:45] LABS: BILIRUBIN,DIRECT 2.9 mg/dL (0.0-0.2); BILIRUBIN,TOTAL 4.8 mg/dL (0.2-1.0); TOT PROT 6.4 g/dl (6.4-8.2)
[2016-09-01 07:49] LABS: ALBUMIN 3.1 g/dl (3.4-5.0); ALK PHOS 419 U/L (45-117); AMYLASE 68 U/L (25-115); ANION GAP 11 (8-16); BILIRUBIN,TOTAL 4.8 mg/dL (0.2-1.0); C-REACTIVE PROTEIN 0.7 MG/DL (0.00-0.3); CO2 26 mmol/L (21-32); GLUCOSE,RANDOM 78 mg/dL (74-106); TOT PROT 6.1 g/dl (6.4-8.2)
--- NOTE | 2016-09-01 11:15 | PN ---
Progress Note, Physician Chief Complaint: ID Asmptomatic Still on Zosyn Remains afebrile - Current Medication List Current Medications: Active Medications Lactated Ringer's (Lactated Ringers Solution) 1,000 mls @ 125 mls/hr IV ASDIR LILLY Stop: 09/04/16 00:14 Last Admin: 09/01/16 10:43 Dose: 125 mls/hr Piperacillin Sod/Tazobactam Sod (Zosyn 4.5gm Ivpb (Pre-Docked)) 4.5 gm IVPB Q8H -IV LILLY PRN Reason: Protocol Last Admin: 09/01/16 09:45 Dose: 4.5 gm - Objective Vital Signs: Vital Signs Temperature 98.2 F 09/01/16 07:06 Pulse Rate 63 09/01/16 07:06 Respiratory Rate 18 09/01/16 07:06 Blood Pressure 125/71 09/01/16 07:06 O2 Sat by Pulse Oximetry (%) 99 08/31/16 12:52 Constitutional: Yes: Well Nourished, No Distress HENT: Yes: WNL, Atraumatic Neck: Yes: WNL, Supple Cardiovascular: Yes: Regular Rate and Rhythm, S1, S2 Respiratory: Yes: WNL, Regular, CTA Bilaterally Gastrointestinal: Yes: WNL, Normal Bowel Sounds, Soft. No: Tenderness, Tenderness, Epigastrium Edema: No Labs: CBC, BMP 09/01/16 06:30 09/01/16 06:30 INR, PTT INR 1.04 (0.82-1.09) 09/01/16 06:30 Assessment/Plan Microbiology 08/31/16 07:40 Urine - Urine Clean Catch Urine Culture - Final NO GROWTH OBTAINED 08/30/16 18:47 Blood - Peripheral Venous Blood Culture - Preliminary NO GROWTH OBTAINED AFTER 24 HOURS, INCUBATION TO CONTINUE FOR 4 DAYS. 08/30/16 18:47 Blood - Peripheral Venous Blood Culture - Preliminary NO GROWTH OBTAINED AFTER 24 HOURS, INCUBATION TO CONTINUE FOR 4 DAYS. Laboratory Tests 09/01/16 09/01/16 06:30 06:30 WBC 7.9 Hgb 11.5 Hct 34.0 Plt Count 307 Neutrophils % 60.9 Lymphocytes % 22.9 D Monocytes % 8.9 Eosinophils % 6.0 H Basophils % 1.3 Total Bilirubin 4.8 H Direct Bilirubin 2.9 H AST 90 H ALT 363 H Alkaline Phosphatase 427 H Assessment Obstructive jaundice Gall stones Plan No evidence for infection currently. As pt for OR for gallbladder removal today Zosyn can be continued through surgery then stop it This was discussed with Dr He Patient thinks she is being discharge today ?? More likely tomorrow Amita FARIA
--- NOTE | 2016-09-01 12:02 | PN ---
Physical Exam: SUBJECTIVE: Patient seen and examined OBJECTIVE: Vital Signs Period Temp Pulse Resp BP Sys/Wilson Pulse Ox Last 24 Hr 97.8 F-98.2 F 52-71 12-19 115-160/61-72 97-99 GENERAL: The patient is awake, alert, and fully oriented, in no acute distress. HEAD: Normal with no signs of trauma. EYES: PERRL, extraocular movements intact, sclera anicteric, conjunctiva clear. No ptosis. ENT: Ears normal, nares patent, oropharynx clear without exudates, moist mucous membranes. NECK: Trachea midline, full range of motion, supple. LUNGS: Breath sounds equal, clear to auscultation bilaterally, no wheezes, no crackles, no accessory muscle use. HEART: Regular rate and rhythm, S1, S2 without murmur, rub or gallop. ABDOMEN: Soft, nontender, nondistended, normoactive bowel sounds, no guarding, no rebound, no hepatosplenomegaly, no masses. EXTREMITIES: 2+ pulses, warm, well-perfused, no edema. NEUROLOGICAL: Cranial nerves II through XII grossly intact. Normal speech, gait not observed. PSYCH: Normal mood, normal affect. SKIN: Warm, dry, normal turgor, no rashes or lesions noted Laboratory Results - last 24 hr 08/31/16 08/31/16 09/01/16 07:40 12:59 06:30 WBC RBC Hgb Hct MCV MCHC RDW Plt Count MPV Neutrophils % Lymphocytes % Monocytes % Eosinophils % Basophils % INR PTT (Actin FS) 62.9 H Sodium 141 Potassium 4.0 Chloride 104 Carbon Dioxide 26 Anion Gap 11 BUN 7 D Creatinine 0.7 Creat Clearance w eGFR > 60 Random Glucose 78 Calcium 9.0 Magnesium 1.9 Total Bilirubin 4.8 H Direct Bilirubin 3.0 H AST 84 H D ALT 378 H D Alkaline Phosphatase 419 H C-Reactive Protein 0.7 H Total Protein 6.1 L Albumin 3.1 L Total Amylase 68 Lipase 176 Ur Specific [place] 1.020 09/01/16 09/01/16 09/01/16 06:30 06:30 06:30 WBC 7.9 RBC 3.62 Hgb 11.5 Hct 34.0 MCV 94.1 MCHC 33.8 RDW 14.2 Plt Count 307 MPV 10.0 Neutrophils % 60.9 Lymphocytes % 22.9 D Monocytes % 8.9 Eosinophils % 6.0 H Basophils % 1.3 INR 1.04 PTT (Actin FS) Sodium Potassium Chloride Carbon Dioxide Anion Gap BUN Creatinine Creat Clearance w eGFR Random Glucose Calcium Magnesium Total Bilirubin 4.8 H Direct Bilirubin 2.9 H AST 90 H ALT 363 H Alkaline Phosphatase 427 H C-Reactive Protein Total Protein 6.4 Albumin 3.2 L Total Amylase Lipase Ur Specific [place] Active Medications Generic Name Dose Route Start Last Admin Trade Name Freq PRN Reason Stop Dose Admin Lactated Ringer's 1,000 mls @ 125 mls/hr 09/01/16 00:15 09/01/16 10:43 Lactated Ringers Solution IV 09/04/16 00:14 125 mls/hr ASDIR LILLY Administration Piperacillin Sod/Tazobactam Sod 4.5 gm 08/31/16 02:00 09/01/16 09:45 Zosyn 4.5gm Ivpb (Pre-Docked) IVPB 4.5 gm Q8H-IV LILLY Administration Protocol ASSESSMENT/PLAN:
--- NOTE | 2016-09-01 12:10 | PN ---
Physical Exam: SUBJECTIVE: Patient seen and examined. Three episodes of stool incontinence. Stool is watery, brown. No cramping or abdominal pain. Cholecystectomy today. OBJECTIVE: Vital Signs Period Temp Pulse Resp BP Sys/Wilson Pulse Ox Last 24 Hr 97.8 F-98.2 F 52-71 12-19 115-160/61-72 97-99 GENERAL: The patient is awake, alert, and fully oriented, in no acute distress. Jaundiced. HEAD: Normal with no signs of trauma. EYES: PERRL, extraocular movements intact, +sclera icteric ENT: throat clear LUNGS: Breath sounds equal, clear to auscultation bilaterally, no wheezes, no crackles, no accessory muscle use. HEART: Regular rate and rhythm, S1, S2 without murmur, rub or gallop. ABDOMEN: Soft, nontender, nondistended, normoactive bowel sounds, no guarding, no rebound EXTREMITIES: 2+ pulses, warm, well-perfused, no edema. NEUROLOGICAL: Cranial nerves II through XII grossly intact. Normal speech, gait not observed. Laboratory Results - last 24 hr 08/31/16 08/31/16 09/01/16 07:40 12:59 06:30 WBC RBC Hgb Hct MCV MCHC RDW Plt Count MPV Neutrophils % Lymphocytes % Monocytes % Eosinophils % Basophils % INR PTT (Actin FS) 62.9 H Sodium 141 Potassium 4.0 Chloride 104 Carbon Dioxide 26 Anion Gap 11 BUN 7 D Creatinine 0.7 Creat Clearance w eGFR > 60 Random Glucose 78 Calcium 9.0 Magnesium 1.9 Total Bilirubin 4.8 H Direct Bilirubin 3.0 H AST 84 H D ALT 378 H D Alkaline Phosphatase 419 H C-Reactive Protein 0.7 H Total Protein 6.1 L Albumin 3.1 L Total Amylase 68 Lipase 176 Ur Specific [place] 1.020 09/01/16 09/01/16 09/01/16 06:30 06:30 06:30 WBC 7.9 RBC 3.62 Hgb 11.5 Hct 34.0 MCV 94.1 MCHC 33.8 RDW 14.2 Plt Count 307 MPV 10.0 Neutrophils % 60.9 Lymphocytes % 22.9 D Monocytes % 8.9 Eosinophils % 6.0 H Basophils % 1.3 INR 1.04 PTT (Actin FS) Sodium Potassium Chloride Carbon Dioxide Anion Gap BUN Creatinine Creat Clearance w eGFR Random Glucose Calcium Magnesium Total Bilirubin 4.8 H Direct Bilirubin 2.9 H AST 90 H ALT 363 H Alkaline Phosphatase 427 H C-Reactive Protein Total Protein 6.4 Albumin 3.2 L Total Amylase Lipase Ur Specific [place] Active Medications Generic Name Dose Route Start Last Admin Trade Name Freq PRN Reason Stop Dose Admin Lactated Ringer's 1,000 mls @ 125 mls/hr 09/01/16 00:15 09/01/16 10:43 Lactated Ringers Solution IV 09/04/16 00:14 125 mls/hr ASDIR LILLY Administration Piperacillin Sod/Tazobactam Sod 4.5 gm 08/31/16 02:00 09/01/16 09:45 Zosyn 4.5gm Ivpb (Pre-Docked) IVPB 4.5 gm Q8H-IV LILLY Administration Protocol ASSESSMENT/PLAN Imaging 08/29 MRCP: (1) distal CBD narrowing/obstruction with wall thickening and progressive contrast enhancement; (2) extensive proximal CBD, cystic duct, CHD, and intrahepatic biliary ductal dilatation with numerous small stones in the distal CBD; (3) contracted gallbladder filled with gallstones, chronic cholecystitis; (4) s/p splenectomy ASSESSMENT/PLAN: 51 year-old woman with a significant PMH of gallstones, and ITP s/p splenectomy (1997), who presented with jaundice, tea-colored urine, nausea and vomiting. Admitted for choledocholilithiasis. Obstructive jaundice secondary to choledocholilithiasis S/P sphincerotomy, balloon sweeping, removal of calculi, lithotripsy, biliary stent placement 08/31 Cholelithiasis Cholecystitis --for cholecystectomy today --continue empiric Zosyn (day #2) --GI and surgery following ITP s/p splenectomy --f/u with PMD to make sure up to date with vaccines -followed by Dr Orozco F/E/N Fluids: IV LR @ 125mL/hr titrated over 24 hours Electrolytes: replete as indicated Nutrition: clears Physical therapy evaluation Daily PT DVT prophylaxis: hold chemical prophylaxis for surgery today; SCDs; oob, ambulation Visit type - Emergency Visit Emergency Visit: Yes ED Registration Date: 08/29/16 Care time: The patient presented to the Emergency Department on the above date and was hospitalized for further evaluation of their emergent condition. - New Patient This patient is new to me today: No - Critical Care Critical Care patient: No
[2016-09-01] MEDS ORDERED: ROCURONIUM BROMIDE 50 MG/5 ML VIAL ONE ×2 (14:09→15:06)
[2016-09-01] MEDS ORDERED: PROPOFOL 20 ML ONE ×2 (14:09)
[2016-09-01] MEDS ORDERED: MIDAZOLAM HCL 2 MG/2 ML SINGLE DOSE VIAL ONE (14:09)
[2016-09-01] MEDS ORDERED: DEXAMETHASONE SOD PHOSPHATE 4 MG/1 ML VIAL ONE (14:55)
[2016-09-01] MEDS ORDERED: NEOSTIGMINE METHYLSULFATE 0.5 MG/ML - 10 ML MDV ONE (15:49)
[2016-09-01] MEDS ORDERED: GLYCOPYRROLATE 0.2 MG/1 ML VIAL ONE (15:49)
--- NOTE | 2016-09-01 16:02 | OP ---
Operative Note - Note: Operative Date: 09/01/16 Pre-Operative Diagnosis: choledocholithiasis, cholelithiasis Operation: laparoscopic cholecystectomy, lavage Findings: pale, edematous gb, generous cystic duct Post-Operative Diagnosis: Same as Pre-op Surgeon: José Miguel Louise Anesthesiologist/PERINATAL EDUCATOR: Irais Contreras Anesthesia: General Specimens Removed: gb Estimated Blood Loss (mls): 30
[2016-09-01] MEDS ORDERED: PROMETHAZINE HCL 25 MG/1 ML VIAL IVPUSH PRN (16:05)
[2016-09-01] MEDS ORDERED: ONDANSETRON 4 MG/2 ML VIAL IVPUSH PRN (16:05)
[2016-09-01] MEDS ORDERED: ACETAMINOPHEN 325 MG TABLET (FP) PO PRN (16:11)
[2016-09-01] MEDS ORDERED: ONDANSETRON 4 MG/2 ML VIAL IVPB PRN (16:11)
[2016-09-01] MEDS ORDERED: HYDROmorphone HCL CARPU-JECT 1 MG/1 ML DISP.SYRIN IVPUSH PRN (16:15)
[2016-09-01] MEDS ORDERED: LACTATED RINGERS SOLUTION 1,000 ML IV SCH (16:15)
[2016-09-01] MEDS ORDERED: D5-1/2NS+20 MEQ KCL - 1,000 ML IV SCH (16:15)
[2016-09-01] MEDS: HYDROmorphone HCL CARPU-JECT 2 MG/1 ML DISP.SYRIN ONE ×2 (16:20→16:40)
[2016-09-01] MEDS: morphine CARPU-JECT 4 MG/1 ML DISP.SYRIN IVPB PRN (22:46)
[2016-09-02] MEDS: PIPERACILLIN/TAZOB 4.5 GM/100 ML PRE-DOCKED IVPB SCH ×3 (01:36→17:35)
[2016-09-02] MEDS: morphine CARPU-JECT 4 MG/1 ML DISP.SYRIN IVPB PRN (06:27)
[2016-09-02 07:02] LABS: BASOPHIL 0.5 % (0-2.0); EOSINOPHIL 1.1 % (0-4.5); MCH 32.1 pg (25.7-33.7); MEAN CELL VOLUME 94.3 fl (80-96); MEAN PLT VOLUME 9.8 fl (7.5-11.1); PLATELET COUNT 306 K/MM3 (134-434); RDW 14.3 % (11.6-15.6); WHITE BLOOD COUNT 10.1 K/mm3 (4.0-10.0)
[2016-09-02 07:28] LABS: ALBUMIN 2.9 g/dl (3.4-5.0); ANION GAP 6 (8-16); CO2 29 mmol/L (21-32); GLUCOSE,RANDOM 108 mg/dL (74-106)
[2016-09-02 07:32] LABS: ALK PHOS 329 U/L (45-117); BILIRUBIN,TOTAL 3.6 mg/dL (0.2-1.0); COCKROFT - GAULT 117.0195; CREATININE 0.8 mg/dL (0.55-1.02); SGOT/AST 55 U/L (15-37); SGPT/ALT 269 U/L (12-78); TOT PROT 5.9 g/dl (6.4-8.2)
--- NOTE | 2016-09-02 08:39 | CONS ---
DATE OF CONSULTATION: DATE OF DICTATION: 09/01/2016 This is a 51-year-old woman who was transferred from [facility] with choledocholithiasis for GI and surgical evaluation. I saw her post ERCP in the endoscopy suite. The concern was for biliary sepsis and we were asked to see her. She has a history of splenectomy in 1997 for ITP. Patient is resting comfortably. She reports no discomfort, no abdominal pain post procedure and has no fevers or chills. PAST MEDICAL HISTORY: Notable for GERD, cholelithiasis. She is known to have gallstone since 2005, but she has not really had any abdominal pain. She is status post splenectomy in 1997. She has a history of . She also has a history of anemia in the past. She was admitted originally with complaints of jaundice, light-colored stools, and vomiting and nausea, which have all resolved. ALLERGIES: She has no known drug allergies. MEDICATIONS: She takes no medications at home. SOCIAL HISTORY: She is . She lives with her spouse. 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 REVIEW OF SYSTEMS: Currently she is resting comfortably. Her nausea, vomiting have resolved. She has no abdominal pain. FAMILY HISTORY: Notable for glioblastoma in her mother and pulmonary abscess in her father. PHYSICAL EXAMINATION: General: She is awake and alert, resting comfortably. Vital Signs: No fevers. Her vital signs were stable. Temperature was 98.2. Pulse is 60. Blood pressure 130/65, respiratory rate 15. HEENT: She is normocephalic. Eyes are anicteric. Neck: Supple. Lungs: Clear to auscultation. Heart: Regular rate and rhythm. Abdomen: Soft, nontender. Extremities: Without edema. LABORATORY: Labs are notable for a white count of 7, hemoglobin 11.9, platelets of 299. BUN and creatinine are 11 and 0.7. Total bilirubin was 5.1 with AST of 147, alkaline phosphatase 468. Cultures are pending. SUMMARY: This is a 51-year-old woman with choledocholithiasis, concern for biliary sepsis, status post splenectomy for idiopathic thrombocytopenic purpura in 1997. I would continue Zosyn for now. SUrgery and GI f/u ongoing Sher OCHOA/[id number] MTDD
--- NOTE | 2016-09-02 08:41 | PN ---
Progress Note (short form) - Note Progress Note: Anesthesia POD#1 S/P Lap Cholecystectomy under GA Awake alert,having breakfast.VSS,no N/V,pain is under control. No complications seen. Irais Contreras MD.
[2016-09-02] MEDS ORDERED: ENOXAPARIN NA (PORCINE) 40 MG/0.4 ML DISP.SYRIN SQ SCH (10:00)
[2016-09-02] MEDS ORDERED: PANTOPRAZOLE SODIUM 100 ML IVPB SCH (10:00)
[2016-09-02] MEDS ORDERED: PANTOPRAZOLE 40 MG TABLET (FP) PO SCH (10:00)
[2016-09-02] MEDS: LACTATED RINGERS SOLUTION 1,000 ML IV SCH (10:27)
--- NOTE | 2016-09-02 11:56 | PN ---
Progress Note (short form) - Note Progress Note: POD #1 s/p lap choly feels well tolerating diest still some incisional pain Vital Signs Period Temp Pulse Resp BP Sys/Wilson Pulse Ox Last 24 Hr 97.7 F-98.3 F 58-98 16-20 109-126/45-63 93-99 cor-rrr lungs clear abd soft,NT incisions clean and dry ext no edema CBC, BMP 09/02/16 06:20 09/02/16 06:20 Microbiology 08/30/16 18:47 Blood - Peripheral Venous Blood Culture - Preliminary NO GROWTH OBTAINED AFTER 48 HOURS, INCUBATION TO CONTINUE FOR 3 DAYS. 08/30/16 18:47 Blood - Peripheral Venous Blood Culture - Preliminary NO GROWTH OBTAINED AFTER 48 HOURS, INCUBATION TO CONTINUE FOR 3 DAYS. 08/31/16 07:40 Urine - Urine Clean Catch Urine Culture - Final NO GROWTH OBTAINED a/p s/p lap choly s/p CBD stent no objection to d/c antibiotics from ID standpoint- will leave decision up to surgery please call back if needed Problem List - Problems (1) Choledocholithiasis Code(s): K80.50 - CALCULUS OF BILE DUCT W/O CHOLANGITIS OR CHOLECYST W/O OBST (2) Post-splenectomy Code(s): Z90.81 - ACQUIRED ABSENCE OF SPLEEN
--- NOTE | 2016-09-02 12:08 | PN ---
Physical Exam: SUBJECTIVE: Patient seen and examined at bedside. OBJECTIVE: Vital Signs Period Temp Pulse Resp BP Sys/Wilson Pulse Ox Last 24 Hr 97.7 F-98.3 F 58-98 16-20 109-126/45-63 93-99 GENERAL: The patient is awake, alert, and fully oriented, in no acute distress. Jaundiced. HEAD: Normal with no signs of trauma. EYES: PERRL, extraocular movements intact, +sclera icteric ENT: throat clear LUNGS: Breath sounds equal, clear to auscultation bilaterally, no wheezes, no crackles, no accessory muscle use. HEART: Regular rate and rhythm, S1, S2 without murmur, rub or gallop. ABDOMEN: Soft, not distended. Three lap sites edges well-approximated, no erythema, no exudate EXTREMITIES: 2+ pulses, warm, well-perfused, no edema. NEUROLOGICAL: Cranial nerves II through XII grossly intact. Normal speech, gait not observed. Laboratory Results - last 24 hr 09/02/16 09/02/16 06:20 06:20 WBC 10.1 H RBC 3.38 L Hgb 10.8 Hct 31.9 L MCV 94.3 MCHC 34.0 RDW 14.3 Plt Count 306 MPV 9.8 Neutrophils % 73.0 Lymphocytes % 17.1 D Monocytes % 8.3 Eosinophils % 1.1 D Basophils % 0.5 Sodium 140 Potassium 4.6 Chloride 105 Carbon Dioxide 29 Anion Gap 6 L BUN 7 Creatinine 0.8 Creat Clearance w eGFR > 60 Random Glucose 108 H D Calcium 9.0 Magnesium 2.0 Total Bilirubin 3.6 H D AST 55 H D ALT 269 H D Alkaline Phosphatase 329 H D Total Protein 5.9 L Albumin 2.9 L Active Medications Generic Name Dose Route Start Last Admin Trade Name Freq PRN Reason Stop Dose Admin Acetaminophen 650 mg 09/01/16 16:11 Tylenol - PO Q4H PRN FEVER OR PAIN Enoxaparin Sodium 40 mg 09/02/16 10:00 09/02/16 11:35 Lovenox - SQ Not Given DAILY LILLY Lactated Ringer's 1,000 mls @ 125 mls/hr 09/01/16 16:47 09/02/16 10:27 Lactated Ringers Solution IV 09/04/16 00:14 125 mls/hr ASDIR LILLY Administration Ondansetron HCl 4 mg 09/01/16 16:11 Zofran Injection IVPB Q6H PRN NAUSEA Oxycodone HCl 7.5 mg 09/01/16 16:11 Roxicodone - PO Q4H PRN PAIN Pantoprazole Sodium 40 mg 09/02/16 10:00 09/02/16 11:34 Protonix - PO 40 mg DAILY LILLY Administration Piperacillin Sod/Tazobactam Sod 4.5 gm 09/01/16 18:00 09/02/16 09:00 Zosyn 4.5gm Ivpb (Pre-Docked) IVPB 4.5 gm Q8H-IV LILLY Administration Protocol ASSESSMENT/PLAN Imaging 08/29 MRCP: (1) distal CBD narrowing/obstruction with wall thickening and progressive contrast enhancement; (2) extensive proximal CBD, cystic duct, CHD, and intrahepatic biliary ductal dilatation with numerous small stones in the distal CBD; (3) contracted gallbladder filled with gallstones, chronic cholecystitis; (4) s/p splenectomy ASSESSMENT/PLAN: 51 year-old woman with a significant PMH of gallstones, and ITP s/p splenectomy (1997), who presented with jaundice, tea-colored urine, nausea and vomiting. Admitted for choledocholilithiasis. Obstructive jaundice secondary to choledocholilithiasis S/P sphincerotomy, balloon sweeping, removal of calculi, lithotripsy, biliary stent placement 08/31 Cholelithiasis Cholecystitis --for cholecystectomy today --continue empiric Zosyn (day #2) --GI and surgery following ITP s/p splenectomy --f/u with PMD to make sure up to date with vaccines -followed by Dr Orozco F/E/N Fluids: IV LR @ 125mL/hr titrated over 24 hours Electrolytes: replete as indicated Nutrition: clears Physical therapy evaluation Daily PT DVT prophylaxis: hold chemical prophylaxis for surgery today; SCDs; oob, ambulation Visit type - Emergency Visit Emergency Visit: Yes ED Registration Date: 08/29/16 Care time: The patient presented to the Emergency Department on the above date and was hospitalized for further evaluation of their emergent condition. - New Patient This patient is new to me today: No - Critical Care Critical Care patient: No
[2016-09-02] MEDS: oxyCODONE HCL 5 MG TABLET PO PRN ×2 (12:11→18:40)
--- NOTE | 2016-09-02 12:48 | PN ---
Progress Note (short form) - Note Progress Note: surgery pt seen and examined. feels well. tolerating diet. wants to go home. "I feel great". voiding. ambulating afebrile abd-soft, nt, nd, incisions clean Plan- s/p cholecystectomy...... surgically stable for d/c. no surgical need for abx or narcotics. ok to shower. ok to drive. no lifting. 2 weeks off work. f/u in 2weeks [phone] s/p cbd stent/choledocholithiasis/abnormal lfts- need for abx and f/u per gi
--- NOTE | 2016-09-02 13:34 | OP ---
DATE OF OPERATION: 09/01/2016 PREOPERATIVE DIAGNOSIS: Choledocholithiasis, cholelithiasis. POSTOPERATIVE DIAGNOSIS: Choledocholithiasis, cholelithiasis. PROCEDURE: Laparoscopic cholecystectomy, lavage. SURGEON: José Miguel Louise DO CLEANING CREW MEMBER: None. ANESTHESIOLOGIST: Irais Contreras MD (general) INTRAOPERATIVE FINDINGS: A pale, edematous gallbladder. BLOOD LOSS: 30 mL. COMPLICATIONS: None. DRAINS: None. DISPOSITION: Recovery room in stable condition. BRIEF HISTORY: This is a 51-year-old female who presented to with painless jaundice. She was found to have choledocholithiasis, underwent ERCP with stent placement, sphincterotomy, and stone extraction. She presents now for cholecystectomy with no clinical evidence of pancreatitis. She understands that she will ultimately require further ERCP to remove her stent, may require further stone extraction. She also understands that she may develop primary duct stones due to the numerous stones in her bile duct and may ultimately require a more definitive surgical procedure than cholecystectomy. DESCRIPTION OF PROCEDURE: The patient was placed in a supine position. General anesthesia was initiated. The abdomen was prepped and draped in sterile fashion. The patient was already on intravenous antibiotic. Next, a vertical incision was made infraumbilical, with scalpel used to cut through skin and subcutaneous tissue. The fascia was then incised vertically. The peritoneum was then lifted. It was cut sharply, entering the abdominal cavity without any complication. Next, a 0 Vicryl stitch was placed across the fascial defect and used to secure the Jhonathan trocar. Pneumoperitoneum was then created, followed by insertion of a 10-mm 0-degree laparoscope. Next, an additional 11-mm trocar was placed subxiphoid, and two 5- mm trocars were placed in the right upper quadrant, one midclavicular line and one anterior axillary line. There were some adhesions to the midline from previous splenectomy which were not addressed at the time of surgery. Next, attention was turned toward the gallbladder. It was pale and edematous. The fundus was lifted cephalad, the infundibulum retracted laterally. The peritoneal peel was quite thickened. It was dissected down. The cystic duct was quite generous. It was dissected out as well as the cystic artery. The cystic duct was divided with an Endo YE vascular load stapler. The staple line was inspected. It was intact. There was no bleeding, no breaks, no sign of ischemia. Next, the cystic artery was clipped and divided as well. The gallbladder was then liberated from the liver bed using electrocautery. There was quite a thick peel. Hemostasis was maintained using electrocautery. At this point the gallbladder was placed in a specimen bag and removed through the infraumbilical trocar site after a significant fascial dilatation and sent to Pathology marked as specimen. A vigorous lavage was done. All return was clear. Trocars were then removed under direct visualization and no bleeding was seen. Pneumoperitoneum was released. The fascia of the infraumbilical trocar site was then closed with multiple interrupted 0 Vicryl sutures. The 4 skin incisions were closed with subcuticular Biosyn, and Dermabond dressing was placed. DO TANVI TROY/[id number] MTDD
--- NOTE | 2016-09-02 18:07 | PN ---
GI Progress Note Subjective: No acute events S/P ERCP with stone extraction and stent placement S/P Lap Yuki Tolerating PO - Objective Vital Signs: Vital Signs Temperature 99.1 F 09/02/16 15:00 Pulse Rate 92 H 09/02/16 15:00 Respiratory Rate 18 09/02/16 15:00 Blood Pressure 114/52 09/02/16 15:00 O2 Sat by Pulse Oximetry (%) 94 L 09/02/16 09:00 Constitutional: Calm Eyes: Yes: Sclera Icterus (mild) Cardiovascular: Yes: Regular Rate and Rhythm Respiratory: Yes: CTA Bilaterally Gastrointestinal Inspection: Yes: Scars. No: Distention ...Auscultate: Yes: Normoactive Bowel Sounds ...Palpate: Yes: Tenderness (at trochar sites, particularly the most lateral) ...Percussion: No: Tympanitic Edema: Yes (Trace) Neurological: Yes: Alert, Oriented Labs: CBC, BMP 09/02/16 06:20 09/02/16 06:20 INR, PTT INR 1.04 (0.82-1.09) 09/01/16 06:30 Hepatic Panel Total Bilirubin 3.6 mg/dL (0.2-1.0) H D 09/02/16 06:20 Direct Bilirubin 2.9 mg/dL (0.0-0.2) H 09/01/16 06:30 AST 55 U/L (15-37) H D 09/02/16 06:20 ALT 269 U/L (12-78) H D 09/02/16 06:20 Alkaline Phosphatase 329 U/L (45-117) H D 09/02/16 06:20 Albumin 2.9 g/dl (3.4-5.0) L 09/02/16 06:20 Problem List - Problems (1) Choledocholithiasis Assessment/Plan: S/P ERCP s/p Lap Yuki with improving LFTs. Stent seerms to be working Advised f/u in office w/ Dr. He in office in 2-3 weeks. Reminded her that she will need repeat ERCP in 3 months for stent removal and revealuation of CBD Actigall 300mg PO BID No GI objection to D/C when patient ready for discharge Code(s): K80.50 - CALCULUS OF BILE DUCT W/O CHOLANGITIS OR CHOLECYST W/O OBST
[2016-09-02 18:50] VITALS: BP 130/78; PULSE 80; TEMP 98.6
--- NOTE | 2016-09-02 19:06 | HP ---
CHIEF COMPLAINT: PCP: HISTORY OF PRESENT ILLNESS: ER course was notable for: (1) (2) (3) Recent Travel: PAST MEDICAL HISTORY: PAST SURGICAL HISTORY: Social History: Smoking: Alcohol: Drugs: Family History: Allergies No Known Allergies Allergy (Verified 08/29/16 12:15) HOME MEDICATIONS: Home Medications Medication Instructions Recorded Oxycodone HCl [Roxicodone -] 5 mg PO Q8H PRN #15 tablet MDD 3 09/02/16 Ursodiol [Actigal -] 300 mg PO BID #60 tab 09/02/16 REVIEW OF SYSTEMS CONSTITUTIONAL: Absent: fever, chills, diaphoresis, generalized weakness, malaise, loss of appetite, weight change HEENT: Absent: rhinorrhea, nasal congestion, throat pain, throat swelling, difficulty swallowing, mouth swelling, ear pain, eye pain, visual changes CARDIOVASCULAR: Absent: chest pain, syncope, palpitations, irregular heart rate, lightheadedness , peripheral edema RESPIRATORY: Absent: cough, shortness of breath, dyspnea with exertion, orthopnea, wheezing, stridor, hemoptysis GASTROINTESTINAL: Absent: abdominal pain, abdominal distension, nausea, vomiting, diarrhea, constipation, melena, hematochezia GENITOURINARY: Absent: dysuria, frequency, urgency, hesitancy, hematuria, flank pain, genital pain MUSCULOSKELETAL: Absent: myalgia, arthralgia, joint swelling, back pain, neck pain SKIN: Absent: rash, itching, pallor HEMATOLOGIC/IMMUNOLOGIC: Absent: easy bleeding, easy bruising, lymphadenopathy, frequent infections ENDOCRINE: Absent: unexplained weight gain, unexplained weight loss, heat intolerance, cold intolerance NEUROLOGIC: Absent: headache, focal weakness or paresthesias, dizziness, unsteady gait, seizure, mental status changes, bladder or bowel incontinence PSYCHIATRIC: Absent: anxiety, depression, suicidal or homicidal ideation, hallucinations. PHYSICAL EXAMINATION Vital Signs - 24 hr 09/01/16 09/01/16 09/02/16 21:00 23:25 07:00 Temperature 98.3 F 98.2 F Pulse Rate 98 H 71 Respiratory 20 18 18 Rate Blood Pressure 110/45 109/53 O2 Sat by Pulse 93 L Oximetry (%) 09/02/16 09/02/16 09/02/16 09:00 10:00 15:00 Temperature 99.1 F Pulse Rate 76 92 H Respiratory 18 18 Rate Blood Pressure 104/52 114/52 O2 Sat by Pulse 94 L Oximetry (%) 09/02/16 18:00 Temperature 98.6 F Pulse Rate 80 Respiratory 20 Rate Blood Pressure 130/78 O2 Sat by Pulse Oximetry (%) GENERAL: Awake, alert, and fully oriented, in no acute distress. HEAD: Normal with no signs of trauma. EYES: Pupils equal, round and reactive to light, extraocular movements intact, sclera anicteric, conjunctiva clear. No lid lag. EARS, NOSE, THROAT: Ears normal, nares patent, oropharynx clear without exudates. Moist mucous membranes. NECK: Normal range of motion, supple without lymphadenopathy, JVD, or masses. LUNGS: Breath sounds equal, clear to auscultation bilaterally. No wheezes, and no crackles. No accessory muscle use. HEART: Regular rate and rhythm, normal S1 and S2 without murmur, rub or gallop. ABDOMEN: Soft, nontender, not distended, normoactive bowel sounds, no guarding, no rebound, no masses. No hepatomegaly or splenomegaly. MUSCULOSKELETAL: Normal range of motion at all joints. No bony deformities or tenderness. No CVA tenderness. UPPER EXTREMITIES: 2+ pulses, warm, well-perfused. No cyanosis. No clubbing. No peripheral edema. LOWER EXTREMITIES: 2+ pulses, warm, well-perfused. No calf tenderness. No peripheral edema. NEUROLOGICAL: Cranial nerves II-XII intact. Normal speech. Normal gait. PSYCHIATRIC: Cooperative. Good eye contact. Appropriate mood and affect. SKIN: Warm, dry, normal turgor, no rashes or lesions noted, normal capillary refill. Laboratory Results - last 24 hr 09/02/16 09/02/16 06:20 06:20 WBC 10.1 H RBC 3.38 L Hgb 10.8 Hct 31.9 L MCV 94.3 MCHC 34.0 RDW 14.3 Plt Count 306 MPV 9.8 Neutrophils % 73.0 Lymphocytes % 17.1 D Monocytes % 8.3 Eosinophils % 1.1 D Basophils % 0.5 Sodium 140 Potassium 4.6 Chloride 105 Carbon Dioxide 29 Anion Gap 6 L BUN 7 Creatinine 0.8 Creat Clearance w eGFR > 60 Random Glucose 108 H D Calcium 9.0 Magnesium 2.0 Total Bilirubin 3.6 H D AST 55 H D ALT 269 H D Alkaline Phosphatase 329 H D Total Protein 5.9 L Albumin 2.9 L ASSESSMENT/PLAN:
--- NOTE | 2016-09-02 20:42 | DS ---
Physical Exam: SUBJECTIVE: Patient seen and examined. Has some incisional pain. Tolerating PO. OBJECTIVE: Vital Signs Period Temp Pulse Resp BP Sys/Wilson Pulse Ox Last 24 Hr 98.2 F-99.1 F 71-98 18-20 104-130/45-78 93-94 PHYSICAL EXAM GENERAL: The patient is awake, alert, and fully oriented, in no acute distress. Jaundice improved. HEAD: Normal with no signs of trauma. EYES: PERRL, extraocular movements intact, +sclera icteric ENT: throat clear LUNGS: Breath sounds equal, clear to auscultation bilaterally, no wheezes, no crackles, no accessory muscle use. HEART: Regular rate and rhythm, S1, S2 without murmur, rub or gallop. ABDOMEN: Soft, not distended. Three lap sites edges well-approximated, no erythema, no exudate EXTREMITIES: 2+ pulses, warm, well-perfused, no edema. NEUROLOGICAL: Cranial nerves II through XII grossly intact. Normal speech, gait not observed. Laboratory Results - last 24 hr 09/02/16 09/02/16 06:20 06:20 WBC 10.1 H RBC 3.38 L Hgb 10.8 Hct 31.9 L MCV 94.3 MCHC 34.0 RDW 14.3 Plt Count 306 MPV 9.8 Neutrophils % 73.0 Lymphocytes % 17.1 D Monocytes % 8.3 Eosinophils % 1.1 D Basophils % 0.5 Sodium 140 Potassium 4.6 Chloride 105 Carbon Dioxide 29 Anion Gap 6 L BUN 7 Creatinine 0.8 Creat Clearance w eGFR > 60 Random Glucose 108 H D Calcium 9.0 Magnesium 2.0 Total Bilirubin 3.6 H D AST 55 H D ALT 269 H D Alkaline Phosphatase 329 H D Total Protein 5.9 L Albumin 2.9 L HOSPITAL COURSE: Date of Admission:08/29/16 Date of Discharge: 09/02/16 Imaging 08/29 MRCP: (1) distal CBD narrowing/obstruction with wall thickening and progressive contrast enhancement; (2) extensive proximal CBD, cystic duct, CHD, and intrahepatic biliary ductal dilatation with numerous small stones in the distal CBD; (3) contracted gallbladder filled with gallstones, chronic cholecystitis; (4) s/p splenectomy ASSESSMENT/PLAN: 51 year-old woman with a significant PMH of gallstones, and ITP s/p splenectomy (1997), who presented with jaundice, tea-colored urine, nausea and vomiting. Admitted for choledocholilithiasis. Obstructive jaundice secondary to choledocholilithiasis S/P sphincerotomy, balloon sweeping, removal of calculi, lithotripsy, biliary stent placement 08/31 S/P lap vijay 09/01 --surgical sites look good --pain is well-managed --tolerating PO --no fever, no white count --stop antibiotics --cleared for discharge by surgery, f/u 2 weeks --cleared for discharge by GI, f/u 2 weeks; will need repeat ERCP in 3 months for stent removal and revealuation of CBD --start actigall as outpatient ITP s/p splenectomy --f/u with PMD to make sure up to date with vaccines Minutes to complete discharge: 35 Discharge Summary Reason For Visit: JAUNDICE Condition: Stable - Instructions Diet, Activity, Other Instructions: Two prescriptions have been sent to your pharmacy. These medications should be taken as directed. Be sure to stay well-hydrated. You should remain home from work for two weeks. You should follow up with your surgeon, Dr. Louise, in two weeks. His contact information is enclosed. You should also follow up with your intake assessor, Dr. He, in two weeks. His contact information is enclosed. Return to the emergency department for any new or worsening symptoms. Referrals: Sara Barber MD [Primary Care Provider] - Dinh He MD [Staff Physician] - 2 Weeks José Miguel Louise MD [Staff Physician] - 2 Weeks Disposition: HOME - Home Medications Comprehensive Discharge Medication List: Ambulatory Orders Oxycodone HCl [Roxicodone -] 5 mg PO Q8H PRN #15 tablet MDD 3 09/02/16 Ursodiol [Actigal -] 300 mg PO BID #60 tab 09/02/16 This patient is new to me today: No Emergency Visit: Yes ED Registration Date: 08/29/16 Care time: The patient presented to the Emergency Department on the above date and was hospitalized for further evaluation of their emergent condition. Critical Care patient: No - Discharge Referral Referred to [facility] Med [facility].C.: Yes Physician Referral: Sara Barber MD ([facility])
[2016-09-02] MEDS ORDERED: URSODIOL 300 MG CAPSULE PO SCH (22:00)
--- NOTE | 2016-09-05 13:00 | PATH ---
Surgical Pathology Report Patient Name: IVIS EUGENE [facility]. Rec. #: [id number] /Age/Gender: 1965 (Age: 51) / F Account: [id number] Location: [address] [place] [address]/[facility] Taken: 09/01/2016 Received: 09/02/2016 Reported: 09/05/2016 Physicians: José Miguel Louise M.D. Specimen(s) Received GALLBLADDER Clinical History Cholecystitis Final Diagnosis GALLBLADDER, CHOLECYSTECTOMY: CHRONIC CHOLECYSTITIS, CHOLELITHIASIS. Electronically Signed Vasile Young M.D. Gross Description Received in formalin, labeled "gallbladder" is an 8.2 x 3.4 x 2.7 cm gallbladder with a 0.2 cm in length portion of cystic duct attached. The outer surface is mccartney-mccray with a focal defect and varies from smooth to shaggy. The lumen contains black, sludge-like bile as well as numerous black, irregular to fragmented choleliths ranging from 0.1-1.0 cm in greatest dimension. The mucosa is green and focally eroded. The wall of the gallbladder ranges from 0.1-0.5 cm in thickness. Senior [employer] sections are submitted in one cassette. 09/02/201609/02/2016
== END 2016-09-02 20:16 | disposition home or self-care (01) | DRG 418 ==
LOC: FER 12:13 → FM/S 18:26 → J5S 08-30 20:30
PROVIDERS: ADMIT Internal Medicine; ATTEND Nurse Practitioner Acute Care
PROC: 0FC98ZZ Extirpation of Matter from Common Bile Duct, Via Natural or Artificial Opening Endoscopic (ICD-10-PCS; 2016-08-31)
PROC: BF10YZZ Fluoroscopy of Bile Ducts using Other Contrast (ICD-10-PCS; 2016-08-31)
PROC: 0F798DZ Dilation of Common Bile Duct with Intraluminal Device, Via Natural or Artificial Opening Endoscopic (ICD-10-PCS; 2016-08-31)
PROC: 0F7D8DZ Dilation of Pancreatic Duct with Intraluminal Device, Via Natural or Artificial Opening Endoscopic (ICD-10-PCS; 2016-08-31)
PROC: 0FT44ZZ Resection of Gallbladder, Percutaneous Endoscopic Approach (ICD-10-PCS; principal; 2016-09-01 12:30)
DX: K80.65 Calculus of gallbladder and bile duct with chronic cholecystitis with obstruction (principal); R17 Unspecified jaundice; K21.9 Gastro-esophageal reflux disease without esophagitis; F17.210 Nicotine dependence, cigarettes, uncomplicated; J32.8 Other chronic sinusitis; D69.6 Thrombocytopenia, unspecified; E66.9 Obesity, unspecified; Z68.34 Body mass index [BMI] 34.0-34.9, adult; Z90.81 Acquired absence of spleen; Z86.2 Personal history of diseases of the blood and blood-forming organs and certain disorders involving the immune mechanism
CPT/HCPCS: 36415; 71010-TC; 74177-TC; 74182-TC; 74330-TC; 76705-TC; 80048; 80053; 80076; 81003; 82150; 82248; 83690; 83735; 84100; 84703; 85025; 85610; 85730; 86140; 87040; 87086; 88304-TC; 93005; 94010; 94760; 97116-GP; 97161-GP; 99282-25; C1887; Q9967

== ENCOUNTER 2016-12-02 08:47 | Day surgery (SDC) | payer SELFPAY ==
[2016-12-02 09:34] VITALS: BP 117/56; PULSE 82; TEMP 98.4; BMI 34.3
[2016-12-02] MEDS ORDERED: ROCURONIUM BROMIDE 50 MG/5 ML VIAL ONE (10:50)
[2016-12-02] MEDS ORDERED: ONDANSETRON 4 MG/2 ML VIAL ONE (10:50)
[2016-12-02] MEDS ORDERED: LIDOCAINE HCL/PF 2% SDV 5ML VIAL ONE (10:50)
[2016-12-02] MEDS ORDERED: GLYCOPYRROLATE 0.2 MG/1 ML VIAL ONE ×4 (10:50)
[2016-12-02] MEDS ORDERED: PROPOFOL 20 ML ONE (10:50)
[2016-12-02] MEDS ORDERED: NEOSTIGMINE METHYLSULFATE 0.5 MG/ML - 10 ML MDV ONE (10:51)
[2016-12-02] MEDS ORDERED: METOCLOPRAMIDE HCL INJECTION 10 MG/2 ML VIAL ONE (10:52)
== END 2016-12-02 11:53 | disposition home or self-care (01) ==
LOC: JASU-ENDO 08:47
PROVIDERS: ATTEND Internal Medicine Gastroenterology
CPT/HCPCS: 84703

== ENCOUNTER 2016-12-23 09:40 | Day surgery (SDC) | payer OTHER ==
[2016-12-22 13:53] VITALS: BMI 34.3
[2016-12-23] MEDS ORDERED: MIDAZOLAM HCL 2 MG/2 ML SINGLE DOSE VIAL ONE (10:42)
[2016-12-23] MEDS ORDERED: PROPOFOL 20 ML ONE (10:42)
[2016-12-23] MEDS ORDERED: ROCURONIUM BROMIDE 50 MG/5 ML VIAL ONE (10:42)
[2016-12-23] MEDS ORDERED: NEOSTIGMINE METHYLSULFATE 0.5 MG/ML - 10 ML MDV ONE (10:42)
[2016-12-23] MEDS ORDERED: GLYCOPYRROLATE 0.2 MG/1 ML VIAL ONE ×3 (10:42)
[2016-12-23] MEDS ORDERED: ONDANSETRON 4 MG/2 ML VIAL ONE (10:42)
[2016-12-23] MEDS ORDERED: LIDOCAINE HCL 2% (20ML MULTI-DOSE VIAL) NR ONE (10:42)
[2016-12-23 12:02] VITALS: TEMP 97.7
[2016-12-23] MEDS ORDERED: LEVOFLOXACIN 500 MG IVPB 100 ML IVPB ONE (12:13)
[2016-12-23 15:04] VITALS: BP 127/72; PULSE 69
--- NOTE | 2016-12-26 12:39 | PATH ---
Surgical Pathology Report Patient Name: IVIS EUGENE [facility]. Rec. #: [id number] /Age/Gender: 1965 (Age: 51) / F Account: [id number] Location: [facility] Taken: 12/23/2016 Received: 12/23/2016 Reported: 12/26/2016 Physicians: Dinh He M.D. 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 Electronically Signed Harman Eddy M.D. Gross Description Received dry labeled "stent from bile duct" and is a 14 cm long x 0.3 cm in diameter portion of plastic tubing which is curled at both ends. The specimen is gross consistent with a biliary stent. This is for gross identification only. [facility]/12/23/2016 the medical center/12/23/2016
== END 2016-12-23 15:00 | disposition home or self-care (01) ==
LOC: JASU-ENDO 09:40 → JOR 09:40 → JASU-ENDO 15:00
PROVIDERS: ATTEND Internal Medicine Gastroenterology
PROC: 0F798ZZ Dilation of Common Bile Duct, Via Natural or Artificial Opening Endoscopic (ICD-10-PCS; 2016-12-23)
PROC: 0FC98ZZ Extirpation of Matter from Common Bile Duct, Via Natural or Artificial Opening Endoscopic (ICD-10-PCS; 2016-12-23)
PROC: 0FPB8DZ Removal of Intraluminal Device from Hepatobiliary Duct, Via Natural or Artificial Opening Endoscopic (ICD-10-PCS; principal; 2016-12-23 10:30)
DX: K80.50 Calculus of bile duct without cholangitis or cholecystitis without obstruction (principal)
CPT/HCPCS: 76000-TC; 84703; 88300-TC